=== PATIENT | female | born 1955 | race Two or more races ===

== ENCOUNTER 2020-06-02 10:47 | Outpatient (CLI) | payer OTHER | END 2020-06-02 10:48 | disposition home or self-care (01) | LOC: PPH VACUNA 10:47 | DX: Z23 Encounter for immunization (principal) ==

== ENCOUNTER 2020-10-31 07:55 | Outpatient (CLI) | payer OTHER | END 2020-10-31 07:59 | disposition home or self-care (01) | LOC: SONOGRAMA 07:55 | PROVIDERS: ATTEND Pathology Anatomic Pathology & Clinical Pathology | DX: E04.1 Nontoxic single thyroid nodule (principal) ==